=== PATIENT | male | born 1990 | race African-American/Black ===

== ENCOUNTER 2021-09-19 08:51 | Emergency (ER) | payer OTHER ==
[~2021-09-19] VITALS: Ht 177.8 cm; Wt 95.5 kg
[2021-09-19] MEDS ORDERED: KETOROLAC 60MG 2ML VIAL IM ONE (11:30)
[2021-09-19] MEDS ORDERED: HYDR-3713 PO (11:55)
[2021-09-19 12:03] VITALS: BP 121/84
== END 2021-09-19 12:04 | disposition home or self-care (01) ==
LOC: M ED 08:51
DX: G89.29 Other chronic pain (principal); M25.552 Pain in left hip; X50.0XXD Overexertion from strenuous movement or load, subsequent encounter; Y92.9 Unspecified place or not applicable; Y93.9 Activity, unspecified; Y99.1 Military activity; M16.12 Unilateral primary osteoarthritis, left hip
CPT/HCPCS: 73502; 96372; 99283; J1885

== ENCOUNTER → 2021-09-20 | Outpatient (CLI) | payer OTHER ==
[~2021-09-20] MED LIST: HYDR-3713 PO
== END ==
LOC: M SOG 09:13
PROVIDERS: ATTEND Orthopaedic Surgery
DX: M25.559 Pain in unspecified hip (principal)

== ENCOUNTER → 2021-10-09 | Outpatient (REF) | LOC: M PLAIMG 08:30 | PROVIDERS: ATTEND Internal Medicine | DX: Z00.00 Encounter for general adult medical examination without abnormal findings (principal) ==

== ENCOUNTER 2021-10-16 08:44 | Emergency (ER) | payer OTHER ==
[~2021-10-16] VITALS: Ht 177.8 cm; Wt 100.0 kg
[2021-10-16] MEDS ORDERED: METAL LOCK LOOP XX ONE (10:31)
[2021-10-16] MEDS ORDERED: LIDOCAINE 5% (LIDODERM) PATCH TD ONE (12:15)
[2021-10-16] MEDS ORDERED: KETOROLAC 60MG 2ML VIAL IM ONE (12:15)
[2021-10-16] MEDS ORDERED: METH-1165 PO (13:29)
[2021-10-16] MEDS ORDERED: NAPR-837 PO (13:29)
[2021-10-16] MEDS ORDERED: ASPE4PAD TOP (13:29)
[2021-10-16] MEDS ORDERED: PRED20TA PO (13:29)
[2021-10-16] MEDS ORDERED: predniSONE 20 MG TAB PO ONE (13:35)
[2021-10-16 13:36] VITALS: BP 125/76
[2021-10-17] MEDS ORDERED: **NOTE PATIENT COMMENT** MISC XX ONE
== END 2021-10-16 13:48 | disposition home or self-care (01) ==
LOC: M ED 08:44
DX: M51.27 Other intervertebral disc displacement, lumbosacral region (principal); M48.061 Spinal stenosis, lumbar region without neurogenic claudication
CPT/HCPCS: 72131; 96372; 99283; J1885; J7512